=== PATIENT | male | born 1980 ===

== ENCOUNTER → 2024-03-15 | Outpatient (CLI) | payer OTHER | END | disposition home or self-care (01) | LOC: TELEHEALTH 11:30 | PROVIDERS: ATTEND Neurological Surgery | DX: M43.17 Spondylolisthesis, lumbosacral region (principal); M47.817 Spondylosis without myelopathy or radiculopathy, lumbosacral region; N18.9 Chronic kidney disease, unspecified; M51.24 Other intervertebral disc displacement, thoracic region | CPT/HCPCS: Q3014 ==